=== PATIENT | male | born 1965 | race Caucasian/White ===

== ENCOUNTER 2018-06-26 05:30 | Inpatient (IN) | payer OTHER ==
[2018-06-26] VITALS (63 sets, daily range): BP systolic 85–187; BP diastolic 31–139
[~2018-06-26] VITALS: Ht 172.7 cm; Wt 72.7 kg
--- NOTE | ~2018-06-26 | EEG ---
[facility] [place] [address] ELECTROENCEPHALOGRAM Name: HARMONY BRUCE Room #: 247-P ADM IN M.R.#: [id number] ������������������ Admission: 06/26/18 ������������������ Attend Phys: Ortiz Marquez MD Discharge: ������������������ Date of : 69 Report #: [id number] ����������������������������������������������������������������� [id number] THIS REPORT FOR: //name// CC: GARY physician[facility]PC[facility] DATE OF SERVICE: 07/01/2018 This patient's EEG was done for significant epileptiform activities, which was present the last time. EEG was done by placing the electrode by standard 10-20 system of electrode placement. Both referential and sequential montages were used for recording. It is difficult to tell the background activity because of lot of artifact is present. But, it does look like that on occasions, the EEG background activity goes about 5 Hz and 10-15 microvolt. Sporadic sharper activity is present, but that has significantly improved since last time. Photic stimulation is unremarkable. IMPRESSION: This patient's EEG demonstrates that epileptiform activity has decreased, but sporadic epileptiform activity still appears to be present. Background activity is also trace better since last time, but the EEG still continue to be significantly abnormal consistent with encephalopathy. Finding is nonspecific. Therefore, clinical correlation is recommended. It might be mentioned that technicians noted that the patient is on propofol. If possible, it would be desirable to do the next EEG, if it is done, without propofol because the epileptiform activity appear to have significantly decreased and the patient may be able to get an EEG done without propofol now. Thank you very much for this referral. ���������������������������������������� ���������������������������������������� By: ��������������������������������������������� 1843 [id number] Jesus Alberto Sheth MD /nt
--- NOTE | ~2018-06-26 | EEG ---
[facility] [place] [address] ELECTROENCEPHALOGRAM Name: HARMONY BRUCE Room #: 247-P ADM IN M.R.#: [id number] ������������������ Admission: 06/26/18 ������������������ Attend Phys: Ortiz Marquez MD Discharge: ������������������ Date of : 69 Report #: [id number] ����������������������������������������������������������������� [id number] THIS REPORT FOR: //name// CC: GARY physician/PCP [facility] DATE OF SERVICE: 06/26/2018 This patient's EEG is being done post-cardiac arrest. EEG demonstrates repeated episode of epileptiform activity. IMPRESSION: The patient's study demonstrates repeated episodes of epileptiform activity. The amount of encephalopathy cannot be assessed on the basis of this EEG because the patient is on cooling protocol. EEG should be repeated when the patient is warmed off and preferably without sedation to address that question. ���������������������������������������� ���������������������������������������� By: ��������������������������������������������� 0747 0813 Jesus Alberto Sheth MD /alfred
--- NOTE | ~2018-06-26 | HC ---
[facility] [place] [address] CONSULTATION Name: HARMONY BRUCE Room #: [facility]- ADM IN M.R.#: [id number] Admission: 06/26/18 ������������������ Attend Phys: Ortiz Marquez MD Discharge: ������������������ Date of : 69 Report #: [id number] THIS REPORT FOR: //name// CC: GARY physician/PCP [facility] DATE OF SERVICE: 06/26/2018 HISTORY OF PRESENT ILLNESS: This is a 53-year-old male patient who was seen by me to prognosticate the patient from hypoxic encephalopathy. I talked to the nurses looking after this patient and reviewed the notes. The way I understand, this patient does not see any doctor. He was found to be in VFib and he was shocked and he was admitted. He is unresponsive. He is on sedation. Nurses tell me that sometimes he postures. No family member is available at the moment. He is on cooling protocol. Emergency Room physician did do a CT scan in this patient to rule out any intracranial pathology and that was unremarkable. REVIEW OF SYSTEMS: Review of system is only from the record and it looks like this patient arrested and they have not found any cardiac cause for this patient so far. No other history is available in this patient, neither from the record nor from any family member. I cannot get past medical history and family history in this patient. PHYSICAL EXAMINATION: The patient's examination is also pretty limited. He is unresponsive. Sometimes, it looks like there may be minimum reaction to the pupil, but I am not certain. He really has no other movement is intubated. He is on a vent. He is on hypothermia protocol. GENERAL: He is a very well-developed individual. VITAL SIGNS: His blood pressure is 158/103, pulse is 94 and temperature is 34. LABORATORY DATA: His labs indicate a white count of 15.7. Potassium was 2.9; it has been persistently low. Lactic acid has been high. Troponin has been high. IMPRESSION: This patient appeared to have a cardiac arrest. We will try to prognosticate him. We will try to get an EEG done in this patient as the first test. Then, we will see what further workup is done depending upon the initial EEG. [address] [address] CONSULTATION Name: HARMONY BRUCE Room #: [facility]- ADM IN M.R.#: [id number] Admission: 06/26/18 ������������������ Attend Phys: Ortiz Marquez MD Discharge: ������������������ Date of : 69 Report #: [id number] Thank you very much for this referral and if you have any question, please feel free to contact me. ��������������������������������������������� ���������������������������������������� By: ��������������������������������������������� 1743 1254 Jesus Alberto Sheth MD /nt
--- NOTE | ~2018-06-26 | EEG ---
[facility] [place] [address] ELECTROENCEPHALOGRAM Name: HARMONY BRUCE Room #: 247-P ADM IN M.R.#: [id number] ������������������ Admission: 06/26/18 ������������������ Attend Phys: Ortiz Marquez MD Discharge: ������������������ Date of : 69 Report #: [id number] ����������������������������������������������������������������� [id number] THIS REPORT FOR: //name// CC: [facility] physician/PCP [facility] DATE OF SERVICE: 06/27/2018 This patient's EEG is done for comparison with the last EEG. EEG was done by placing the electrode by standard 10-20 system of electrode placement. Temperature is 36.1. Throughout the record, the patient continued to demonstrate periodic epileptiform activity. IMPRESSION: Severely abnormal EEG where the patient continued to demonstrate very significant epileptiform activity throughout the record. Thank you very much for this referral. ���������������������������������������� ���������������������������������������� By: ��������������������������������������������� 1749 1906 Jesus Alberto Sheth MD /alfred
--- NOTE | 2018-06-26 05:36 | NUR ---
SUCCS-100MG GIVEN AT 0535 PER EMS IV SITE RIGHT FOREARM PRE INTUBATION SECOND IV SITE LEFT FOREARM-#20
[2018-06-26 05:59] LABS: ABSOLUTE NEUTROPHILS 7.4 thou/uL (1.4-8.2); BASOPHILS 0.7 % (0.0-2.0); HEMATOCRIT 47.5 % (42.0-52.0); HEMOGLOBIN 15.8 gm/dL (14.0-18.0); LYMPHOCYTES 47.8 % (24.0-44.0); MCH 35.2 pg (26.0-34.0); MCHC 33.3 g/dL (28.0-37.0); MCV 105.5 fL (80.0-100.0); MONOCYTES 2.8 % (1.0-8.0); PLATELET COUNT 118 thou/uL (150-400); POLYS 47.7 % (36.0-66.0); RBC 4.51 mil/uL (4.50-6.00); RDW 12.9 % (10.5-14.5); WBC 15.5 thou/uL (4.0-11.0)
[2018-06-26 05:59] LABS: HCO3 12.2 mmol/L (22.0-26.0); PCO2 44.7 mmHg (35.0-45.0); PO2 283.4 mmHg (80.0-100.0); pH 7.053 (7.360-7.450); sO2 99.4 % (92.0-98.0)
[2018-06-26 06:09] LABS: CALCIUM 7.8 mg/dL (8.5-10.1); CREATININE 0.9 mg/dL (0.7-1.3); POTASSIUM 3.3 mmol/L (3.5-5.1)
[2018-06-26 06:17] LABS: ALBUMIN 3.2 g/dL (3.4-5.0); TOTAL BILIRUBIN 0.4 mg/dL (<0.1-1.0); TOTAL PROTEIN 6.3 g/dL (6.4-8.2); TROPONIN-I 0.11 ng/mL (<0.06)
[2018-06-26 06:54] LABS: APTT 30.1 Seconds (24.5-32.8); INR 1.3; PROTIME 13.7 Seconds (9.3-11.4)
[2018-06-26 07:07] LABS: BE(vivo) -12.3 mmol/L (-2 to +3); HCO3 17.3 mmol/L (22.0-26.0); PCO2 53.5 mmHg (35.0-45.0); PO2 239.8 mmHg (80.0-100.0); sO2 99.3 % (92.0-98.0)
[2018-06-26 07:08] LABS: pH 7.128 (7.360-7.450)
--- NOTE | 2018-06-26 08:51 | EKG ---
[address] [place] [address] ELECTROCARDIOGRAM REPORT Name: HARMONY BRUCE Room #: 170-6 ADM IN M.R.#: [id number] ������������������ Admission: 06/26/18 ������������������ Attend Phys: Ortiz Marquez MD Discharge: ������������������ Date of : 69 Report #: [id number] ����������������������������������������������������������������� [id number] THIS REPORT FOR: //name// [facility] ED Test Date: 2018-06-26 Test Time: 05:44:46 Pat Name: HARMONY BRUCE Department: Room: 170 Gender: M Advisor Consultant: LINDSAY : 1965 Requested By: Ana Casey Order Number: [id number] MD: Tj Hart Measurements Intervals Sanders Rate: 85 P: 74 SD: 169 QRS: -51 QRSD: 118 T: 63 QT: 446 QTc: 531 Interpretive Statements Sinus rhythm LAD, consider left anterior fascicular block Low voltage, extremity leads No previous ECG available for comparison Electronically Signed On 06-26-2018 8:51:19 CDT by Tj Hart [email or web address] ��������������������������������������������� <ELECTRONICALLY SIGNED> ���������������������������������������� By: Tj Hart MD ��������������������������������������������� 06/26/18 0851 0544 0544 Tj Hart MD /VLADIMIR
[2018-06-26 10:33] LABS: FIBRINOGEN 140.7 mg/dL (210-360)
[2018-06-26 10:55] LABS: D-DIMER 31.01 ug/mLFEU (0.19-0.50)
[2018-06-26 13:06] LABS: BE(vivo) 1.4 mmol/L (-2 to +3); HCO3 25.8 mmol/L (22.0-26.0); PCO2 39.8 mmHg (35.0-45.0); pH 7.429 (7.360-7.450); sO2 99.5 % (92.0-98.0)
[2018-06-26 13:33] LABS: AMP/METHAMP Negative (Negative); BARBITURATES Negative (Negative); BENZODIAZEPINES POSITIVE (Negative); COCAINE Negative (Negative); METHADONE Negative (Negative); OPIATES Negative (Negative); PCP Negative (Negative)
[2018-06-26 14:07] LABS: ABSOLUTE NEUTROPHILS 13.5 thou/uL (1.4-8.2); BASOPHILS 0.1 % (0.0-2.0); HEMATOCRIT 51.1 % (42.0-52.0); HEMOGLOBIN 17.6 gm/dL (14.0-18.0); LYMPHOCYTES 5.2 % (24.0-44.0); MCH 34.9 pg (26.0-34.0); MCHC 34.4 g/dL (28.0-37.0); MCV 101.7 fL (80.0-100.0); MONOCYTES 8.9 % (1.0-8.0); PLATELET COUNT 101 thou/uL (150-400); POLYS 85.8 % (36.0-66.0); RBC 5.02 mil/uL (4.50-6.00); RDW 12.5 % (10.5-14.5); WBC 15.7 thou/uL (4.0-11.0)
[2018-06-26 14:21] LABS: APTT 25.4 Seconds (24.5-32.8); INR 1.2; PROTIME 12.3 Seconds (9.3-11.4)
[2018-06-26 14:25] LABS: CALCIUM 8.6 mg/dL (8.5-10.1); CREATININE 0.5 mg/dL (0.7-1.3); MAGNESIUM 1.3 mg/dL (1.8-2.4); PHOSPHORUS 2.4 mg/dL (2.5-4.9)
[2018-06-26 14:27] LABS: POTASSIUM 2.9 mmol/L (3.5-5.1); TROPONIN-I 1.63 ng/mL (<0.06)
--- NOTE | 2018-06-26 17:09 | NUR ---
Assumed care of patient at 0900. 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 Hypothermia protocol initiated 904, goal temp of 33 celcius reached at 1330. Electrolytes replaced as needed. Significant posturing noted to bilat upper extremities, PRN vecuronium given x2. Propofol drip changed to versed drip. Updated D'An with plan of care, ventilator protocols, plan for re-warming tomorrow, and medications. Will continue to monitor.
[2018-06-26 18:51] LABS: TSH 1.253 uIU/mL (0.358-3.740)
[2018-06-26 19:00] LABS: ABSOLUTE NEUTROPHILS 12.6 thou/uL (1.4-8.2); BASOPHILS 0.2 % (0.0-2.0); HEMATOCRIT 50.3 % (42.0-52.0); HEMOGLOBIN 17.3 gm/dL (14.0-18.0); LYMPHOCYTES 3.7 % (24.0-44.0); MCH 35.1 pg (26.0-34.0); MCHC 34.4 g/dL (28.0-37.0); MCV 102.1 fL (80.0-100.0); MONOCYTES 6.6 % (1.0-8.0); PLATELET COUNT 98 thou/uL (150-400); POLYS 89.5 % (36.0-66.0); RBC 4.93 mil/uL (4.50-6.00); RDW 12.5 % (10.5-14.5); WBC 14.1 thou/uL (4.0-11.0)
[2018-06-26 19:13] LABS: INR 1.3; PROTIME 13.5 Seconds (9.3-11.4)
--- NOTE | 2018-06-26 19:20 | NUR ---
VASCULAR ACCESS CONSULTED FOR A CL FOR MULTIPLE IV MEDS AND VESICANTS. PLEASE SEE INSERTION FOR DETAILS
[2018-06-26 20:09] LABS: CALCIUM 7.9 mg/dL (8.5-10.1); CREATININE 0.6 mg/dL (0.7-1.3); MAGNESIUM 1.8 mg/dL (1.8-2.4); PHOSPHORUS 4.7 mg/dL (2.5-4.9)
[2018-06-26 20:15] LABS: TROPONIN-I 1.03 ng/mL (<0.06)
[2018-06-27] VITALS (99 sets, daily range): BP systolic 55–186; BP diastolic 13–125
[2018-06-27 00:38] LABS: CALCIUM 7.6 mg/dL (8.5-10.1); CREATININE 0.5 mg/dL (0.7-1.3); MAGNESIUM 1.9 mg/dL (1.8-2.4); PHOSPHORUS 3.2 mg/dL (2.5-4.9)
[2018-06-27 00:45] LABS: POTASSIUM 2.7 mmol/L (3.5-5.1); TROPONIN-I 0.73 ng/mL (<0.06)
--- NOTE | 2018-06-27 04:58 | NUR ---
PT REMAINS SEDATED/NONRESPONSIVE ON HYPOTHERMIA PROTOCOL REMAINS IN THE COOLING PHASE UNTIL REWARMING BEGINS TODAY 06/27/18 AT 0900. PT CONTINUES ON VERSED AND INSULIN GTT. PT BP STABLE. PT SR/ST ON MONITOR. TOLERATING VENT SETTINGS OF FIO2 50% SATS 100%. PT NG TO LIS WITH SCANT AMOUNT OF BLOOD TINGED SECRETIONS. PT AM LABS TO BE DRAWN. PT WITH MAINTENANCE IVF. ELECTROLYTE REPLACEMENT PROTOCAL IN PLACE.
[2018-06-27 06:56] LABS: HEMATOCRIT 50.6 % (42.0-52.0); HEMOGLOBIN 17.4 gm/dL (14.0-18.0); MCH 35.3 pg (26.0-34.0); MCHC 34.4 g/dL (28.0-37.0); MCV 102.6 fL (80.0-100.0); PLATELET COUNT 78 thou/uL (150-400); RBC 4.93 mil/uL (4.50-6.00); RDW 12.6 % (10.5-14.5); WBC 10.6 thou/uL (4.0-11.0)
[2018-06-27 07:17] LABS: APTT 31.7 Seconds (24.5-32.8); INR 1.1; PROTIME 11.8 Seconds (9.3-11.4)
[2018-06-27 07:21] LABS: CALCIUM 7.6 mg/dL (8.5-10.1); CREATININE 0.5 mg/dL (0.7-1.3); MAGNESIUM 1.8 mg/dL (1.8-2.4); PHOSPHORUS 2.9 mg/dL (2.5-4.9); TROPONIN-I 0.45 ng/mL (<0.06)
[2018-06-27 07:22] LABS: POTASSIUM 2.9 mmol/L (3.5-5.1)
[2018-06-27 07:25] LABS: BE(vivo) 1.9 mmol/L (-2 to +3); PCO2 43.5 mmHg (35.0-45.0); PO2 169.5 mmHg (80.0-100.0); pH 7.411 (7.360-7.450); sO2 99.2 % (92.0-98.0)
--- NOTE | 2018-06-27 07:56 | HC ---
[facility] [place] [address] CONSULTATION Name: HARMONY BRUCE Room #: [facility]- ADM IN M.R.#: [id number] Admission: 06/26/18 ������������������ Attend Phys: Ortiz Marquez MD Discharge: ������������������ Date of : 69 Report #: [id number] THIS REPORT FOR: //name// CC: GARY physician/PCP [facility] DATE OF SERVICE: 06/26/2018 INDICATION: Arrest. HISTORY OF PRESENT ILLNESS: This is a 53-year-old gentleman with no significant past medical history who presents with out of hospital arrest. According to medical records the patient's heard strange noises from her . She tried to wake him up and he did not respond. She found him unresponsive and called 911. Apparently, a bystander CPR was performed. When EMS arrived, the rhythm was ventricular fibrillation. He was treated with multiple shocks, amiodarone and epinephrine, intubated as well. In the ER, he had a stable rhythm. EKG reveals sinus rhythm without any acute ST segment changes. He does have a history of drinking alcohol on a daily basis, the alcohol level is 187. He is also found to have acidosis with high lactate levels, 9.5. The initial troponin level is 0.11. PAST MEDICAL HISTORY: None. ALLERGIES: None. MEDICATIONS: None. SOCIAL HISTORY: Drinks alcohol on a daily basis, amount unknown. FAMILY HISTORY: Unobtainable. REVIEW OF SYSTEMS: Unobtainable. PHYSICAL EXAMINATION: VITAL SIGNS: Blood pressure is 120/70, heart rate is 98 beats per minute. GENERAL APPEARANCE: A well-developed, well-nourished male, intubated. HEENT: Normocephalic, atraumatic. ET tube in place. NECK: No JVD. LUNGS: Clear to auscultation. CARDIAC: Regular rate and rhythm, S1, S2 positive. ABDOMEN: Soft, nontender. EXTREMITIES: No cyanosis, no edema. ECG reveals sinus rhythm. [facility] [address] [place] [address] CONSULTATION Name: HARMONY BRUCE Room #: [facility] ADM IN M.R.#: [id number] Admission: 06/26/18 ������������������ Attend Phys: Ortiz Marquez MD Discharge: ������������������ Date of : 69 Report #: [id number] Chest x-ray reveals left pneumonitis. LABORATORY VALUES: Troponin 0.11. Alcohol is 187. Lactate 9.5. Sodium is 138, creatinine is 0.9. White count is 15.5, platelet count is 118. ASSESSMENT AND PLAN: 1. Cardiac arrest/ventricular fibrillation, etiology unclear. There is minimal troponin elevation. We will proceed with cardiac catheterization to rule out coronary artery disease. 2. Lactic acidosis, may be related to prolonged hypoxia. We will also need to rule out sepsis. 3. Pneumonitis, rule out aspiration pneumonia. He had a very high alcohol level, may have resulted in aspiration. 4. Alcohol abuse. ��������������������������������������������� <ELECTRONICALLY SIGNED> ���������������������������������������� By: Wai Nicole MD ��������������������������������������������� 06/27/18 0756 0832 [id number] Wai Nicole MD /nt
[2018-06-27 08:42] LABS: ABSOLUTE NEUTROPHILS 8.5 thou/uL (1.4-8.2)
[2018-06-27 08:44] LABS: ANISOCYTOSIS SLIGHT; MACROCYTES SLIGHT
[2018-06-27 08:45] LABS: PLATELET ESTIMATE SLIGHTLY DECREASED
--- NOTE | 2018-06-27 09:09 | CATHLAB ---
[facility] [address] [place] [address] INVASIVE PROCEDURE REPORT Name: HARMONY BRUCE Room #: 247-P ADM IN M.R.#: [id number] ������������� Admission: 06/26/18 ������������� Attend Phys: Ortiz Marquez, Discharge: ��� ������������� ��� Date of : 69 Date of Service: 06/27/18 0909 �� Report #: [id number] �������� ��������������������������������������������[id number] THIS REPORT FOR: //name// APPROVED REPORT Study performed: 06/26/2018 07:16:11 Patient Details The patient is a 53 year-old male Event Personnel Wai Nicole Brand Marketing Specialist, Ga Pimentel RN, Tatiana Fall RT(R)() Dean Jerez Valisa Monitor Procedures Performed Art Access - R femoral artery* Left Heart Cath w/or w/o Coronaries [id number] [facility] [address] Initial Mod Sed Same Phys/QHP Gr5y [id number] Indication Arrhythmia, Out of hospital cardiac arrest, V. fib requiring DC shock. Risk Factors Alcohol history Procedure Narrative The Right Groin^ was infiltrated with 1% Lidocaine subcutaneous anesthesia. A PINNACLE 4FR Sheath #[id number] sheath was inserted into the RFA^. Coronary angiography was performed using coronary diagnostic catheters. The right coronary system was accessed and visualized with a JR4 catheter. The left coronary system was accessed and visualized with a JL4 catheter. The left ventricle was accessed and visualized with a PIGTAIL catheter. Hemostasis was obtained with manual pressure following sheath removal without any complications. The patient tolerated the procedure well and there were no complications associated with the procedure. Intraoperative Conscious Sedation Sedation start time: 753 Case end Time: 807 Fluoro Time: 2.49 minutes Dose: DAP 2330.80 cGycm2 Contrast Type and Amount: Omnipaque 85 ml [facility] [place] [address] [place] [address] INVASIVE PROCEDURE REPORT Name: HARMONY BRUCE Room #: [facility] IN ..#: [id number] ������������� Admission: 06/26/18 ������������� Attend Phys: Ortiz Marquez, Discharge: ��� ������������� ��� Date of : 69 Date of Service: 06/27/18 0909 �� Report #: [id number] �������� ��������������������������������������������[id number] Coronary Angiography The patient's coronary anatomy is co- dominant. Diagnostic Cath Left Main This is a large caliber vessel, with no flow-limiting lesions. LAD The LAD is a moderate size caliber vessel, traversing the anterior wall and wrapping around the apex. There are mild calcifications in the proximal segment but no angiographic evidence for plaquing. There may be minimal luminal irregularities in the midsegment. Diagonal 1 This is a moderate size caliber vessel, with no flow-limiting lesions. Circumflex This is a moderate size caliber vessel, that is codominant. This vessel is patent with no flow-limiting lesions. OM1 This is a moderate size caliber vessel, with no flow-limiting lesions. OM2 This is a moderate size caliber vessel, with no flow-limiting lesions. Right Coronary This is a moderate size caliber vessel, with no flow-limiting lesions. R PDA This is a moderate size caliber vessel, with no flow-limiting lesions. Left Ventriculography The left ventricle is normal in size with normal contractility. The left ventricular ejection fraction is estimated to be 50-55%. Hemodynamics The aortic pressure is 142/105 mmHg with a mean of 120 mmHg. The left ventricular pressure is 180/31 mmHg with a mean of mmHg. The left ventricular end diastolic pressure is 61 mmHg. Conclusion 1. Angiographically normal coronary arteries. There may be minimal luminal irregularities in the mid LAD segment. 2. Codominant system. 3. Normal LV systolic function. ��������������������������������������������� <ELECTRONICALLY SIGNED> ���������������������������������������� By: Wai Nicole MD ��������������������������������������������� 06/27/18908 8 8 Wai Nicole MD /INF
--- NOTE | 2018-06-27 15:39 | NUR ---
CM ASSESSMENT: CASE OPENED FOR DC PLANNING. CLINICAL INFO REVIEWED. PT ADMITTED AFTER OUT OF HOSPITAL ARREST AND IS ON VENT BEING REWARMED TODAY FROM HYPOTHERMIA PROTOCOL. PT HAD BAL OF 187 AND DRUG SCREEN POSITIVE FOR BENZOS AND THC. MET WITH SPOUSE AND OTHER FAMILY IN WAITING ROOM. 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 SPOUSE INDICATES WITHOUT MEDICAL INSURANCE. EXPLAINED ROLE OF HUMANARC AND SPOUSE INDICATES SHE IS OPEN TO WORKING WITH THEM FOR MEDICAID/DISSABILITY SCREENING. SPOUSE INDICATES SHE THINKS THE NE IS PAYING FOR HOSPITAL STAY AND INFORMED HER GENTLY [facility] RE[facility] OUT TO [facility] AND THEY ARE NOT COVERING STAY. EMOTIONAL SUPPORT OFFERRED AND CM AVAILABLE TO ASSIST WITH SUPPORT AND COORDINATION OF ANY DC NEEDS.
--- NOTE | 2018-06-27 18:20 | NUR ---
ASSUMED CARE AT 0700 THIS AM. PATIENT STILL IN COOLING PHASE AND TO START REWARM AT 0905. PATIENT WAS SET TO REWARM AT 0905. PATIENT REMAINED STABLE HOWEVER HAD INTERMITENT SEIZURES/SHIVERS. VEC GIVEN X 3. ONE OF THE TIME VEC WAS GIVEN WAS JUST PRIOR TO EEG SO THEY COULD DECIPHER SHIVER VS SEIZURES. PATIENT HAS TAKEN QUIT A LONG TIME TO REWARM. PATIENT CURRENTLY AT 36.4. GOOD URINE OUTPUT NOTED. CONTINUES ON AN INSULIN DRIP WITH STABLE BLOOD GLUCOSE. REPLACED ELECTROLYTES NEEDED. NO FURTHER CONCERNS AT THIS TIME. WILL CONTINUE TO MONITOR AND CARE PER PLAN OF CARE.
[2018-06-28] VITALS (63 sets, daily range): BP systolic 82–123; BP diastolic 50–78
--- NOTE | 2018-06-28 05:06 | NUR ---
PT REMAINS SEDATED WITH VERSED, FENTANYL, PROPOFOL WITH LEVOPHED GTT FOR PRESSURE SUPPORT. PT APPEARS MORE RELAXED WITH FINE SEIZING NOTED. PT T MAX 100.8 DEGREES, TYLENOL SUPP GIVEN AND TEMP CAME DOWN TO 99.2. PT CONTINUES WITH BANANA BAG AND LR IVF FOR MAINTENANCE. PT CVP MONITORING. PT MAINTAINS ON VENT FIO2 40% SATS 100%. PT NEURO UNRESPONSIVE EXCEPT TO GAG AND COUGH, PUPILS REACTIVE BUT SLUGGISH AND EYE DEVIATE DOWNWARD WITH TICKING MOTION. PT AM LABS TO BE DRAWN AND REVIEWED. PT REMAINED ST 130-140S MAJORITY OF NIGHT AND NOW SR 92 ON MONITOR.
[2018-06-28 05:31] LABS: HEMATOCRIT 40.1 % (42.0-52.0); MCH 35.3 pg (26.0-34.0); MCHC 34.3 g/dL (28.0-37.0); MCV 102.8 fL (80.0-100.0); RBC 3.9 mil/uL (4.50-6.00); RDW 12.8 % (10.5-14.5); WBC 13.5 thou/uL (4.0-11.0)
[2018-06-28 05:57] LABS: HEMOGLOBIN 13.7 gm/dL (14.0-18.0)
[2018-06-28 06:00] LABS: ALBUMIN 2.3 g/dL (3.4-5.0); CALCIUM 6.9 mg/dL (8.5-10.1); CREATININE 0.7 mg/dL (0.7-1.3); POTASSIUM 3.8 mmol/L (3.5-5.1); TOTAL BILIRUBIN 0.6 mg/dL (<0.1-1.0); TOTAL PROTEIN 4.9 g/dL (6.4-8.2)
--- NOTE | 2018-06-28 08:14 | NUR ---
ORDERS FOR EVAL AND TREATED RECEIVED 06/26/18. Pt REMAINS INTUBATED AND ON MULTIPLE MEDICATIONS FOR SEDATION AND PRESSURE SUPPORT TODAY. Pt NOT APPROPRIATE FOR PT EVALUATION AT THIS TIME. PT TO PLACE Pt ON HOLD UNTIL FURTHER ORDERS RECEIVED BEFORE INITIATING THERAPY.
--- NOTE | 2018-06-28 10:14 | NUR ---
FOLLOWING FOR FAMILY SUPPORT AND DC PLANNING. CLINICAL INFO REVIEWED. PT AT CT AT THIS TIME. MET WITH SPOUSE THIS AM. DISCUSSED TIMELINE OF LAY OFF AND POSSIBLE COBRA ELIGIBILITY. ALSO INFORMED HER REQUESTED SERGIO CONNER TO LOOK INTO [facility] TO CLARIFY WHETHER PT ELIGIBLE FOR [facility] COVERAGE OF HOSPITAL STAY. SPOUSE AGREEABLE TO SPEAK WITH SERGIO CONNER AND SERGIO CONNER PRIVIDED WITH SPOUSE CONTACT #.
--- NOTE | 2018-06-28 13:19 | NUR ---
CT HEAD TODAY SHOWS SMALL SUBARCHNOID BLEED. PER DR. SANDERS, FAMILY WANTS TRANSFER TO [facility] AND HE HAS SPOKEN WITH WAREHOUSE FREIGHT HANDLER AT [facility]. PT'S SPOUSE ESPERANZA AND PT'S SISTER FRANCY JOYNER INDICATE FAMILY WANTS OPINION OF NEUROSURGICAL INTERVENTIONALIST DR. ASHLEY, THEY DO NOT WANT TRANSFER AT THIS TIME. SPOKE WITH WAREHOUSE FREIGHT HAND[employer]ER [facility] ([phone]/F:[phone]) AND UPDATED TO FAMILY REQUEST. SHE INDICATES SHE WILL CALL DR. MONROY THE [employer] NEURO INTERVENTIONALIST WITH THIS REQUEST. REQUESTED CLINICAL FAXED TO [facility] AND RADIOLOGY ASKED TO [facility] FOR [facility] TO VIEW. DR. SANDERS AND SALES FORCE DEVELOPER UPDATED.
--- NOTE | 2018-06-28 19:44 | NUR ---
PT REMAINS ON PROPOFOL, VERSED, FENTANYL GTT. CHANGES TO IV KEPPRA AND LACOSAMIDE MADE BY DR. TINAJERO. CT HEAD DONE THIS AM. RESULTS COMMUNICATED TO DR. SANDERS AND LIOR, ORDERS FOR CTA OF HEAD. NEW IV PLACED IN IV AC FOR CTA. LEVO GTT FOR BLOOD PRESSURES TO KEEP MAP >60. EEG DONE THIS AFTERNOON - STILL SHOWS SEIZURE ACITIVTY. FIO2 DOWN TO 30% FROM 40%. PT HAS COUGH AND GAG REFLEX. PUPILS REACTIVE BUT SLUGGISH. AFEBRILE.
[2018-06-29] VITALS (58 sets, daily range): BP systolic 92–145; BP diastolic 55–82
--- NOTE | 2018-06-29 05:44 | NUR ---
PT REMAINS UNCHANGED NEUROLOGICALLY. PT TEMP MAX 100.9 AND RECEIVED TYLENOL NOW TEMP 99.3. PT SR/ST ON MONITOR. CONTINUES ON PROPOFOL, FENTANYL, VERSED AND LEVOPHED GTT. PT WITH MAINTENANCE IVF. PT CVP MONITORING. REMAINS STABLE ON VENT AT 30% FIO2 SATS 100%.
[2018-06-29 08:47] LABS: HEMATOCRIT 34.5 % (42.0-52.0); MCH 35.4 pg (26.0-34.0); MCHC 34.7 g/dL (28.0-37.0); MCV 101.9 fL (80.0-100.0); RBC 3.38 mil/uL (4.50-6.00); RDW 12.5 % (10.5-14.5); WBC 11.6 thou/uL (4.0-11.0)
[2018-06-29 09:00] LABS: ALBUMIN 2.1 g/dL (3.4-5.0); CALCIUM 7.4 mg/dL (8.5-10.1); CREATININE 0.6 mg/dL (0.7-1.3); PHOSPHORUS 2.7 mg/dL (2.5-4.9); POTASSIUM 3.4 mmol/L (3.5-5.1); TOTAL BILIRUBIN 0.7 mg/dL (<0.1-1.0); TOTAL PROTEIN 4.8 g/dL (6.4-8.2)
--- NOTE | 2018-06-29 11:07 | EEG ---
[facility] [place] [address] ELECTROENCEPHALOGRAM Name: HARMONY BRUCE Room #: 247-P ADM IN M.R.#: [id number] ������������������ Admission: 06/26/18 ������������������ Attend Phys: Ortiz Marquez MD Discharge: ������������������ Date of : 69 Report #: [id number] ����������������������������������������������������������������� [id number] THIS REPORT FOR: //name// CC: [facility] physician/PCP Ortiz Spencer [facility] HISTORY: The patient is a 53-year-old male with status epilepticus. An EEG is requested for further evaluation. The patient is on levetiracetam 1000 mg b.i.d. DESCRIPTION: The record consists of spike and wave and occurring singly or in runs lasting 1 up to 4 seconds, followed by attenuation of the background record, which is very short period in comparison to the EEG of yesterday. The patient now has more epileptiform activity, followed by shorter periods of burst suppression. IMPRESSION: This record is consistent with status epilepticus. Medications are being adjusted. ���������������������������������������� <ELECTRONICALLY SIGNED> ���������������������������������������� By: Genesis Salmeron DO ��������������������������������������������� 06/29/18 1107 1222 1343 Genesis Salmeron DO /nt
--- NOTE | 2018-06-29 15:30 | NUR ---
VASCULAR ACCESS ROUNDS- PATIENT IS STILL IN CRITICAL CONDITION WITH MULTIPLE IV'S INFUSING WELL CVP MONITORING- LINE CONTINUES TO BE APPROPRIATE ACCESS
[2018-06-29 17:19] LABS: MAGNESIUM 2.1 mg/dL (1.8-2.4); POTASSIUM 3.8 mmol/L (3.5-5.1)
--- NOTE | 2018-06-29 19:23 | NUR ---
NO CHANGES IN PT STATUS. REMAINS UNRESPONSIVE ON MULTIPLE GTTS. EEG DONE TODAY. CHANGES TO MEDICATIONS BY DR. SCHAFER. PLAN FOR ANOTHER EEG TOMORROW. T-MAX 99.6. TUBE FEEDINGS INITATED AT 20 ML/HR GOAL RATE 65. JEVITY 1.5. AT BEDSIDE THROUGH OUT DAY. ELECTROLYTES REPLACED PER PROTOCOL. WILL CONTINUE TO MONITOR.
[2018-06-30] VITALS (69 sets, daily range): BP systolic 82–136; BP diastolic 49–89
[2018-06-30 05:25] LABS: HEMATOCRIT 35.6 % (42.0-52.0); HEMOGLOBIN 12.4 gm/dL (14.0-18.0); MCH 35.4 pg (26.0-34.0); MCHC 34.7 g/dL (28.0-37.0); RBC 3.49 mil/uL (4.50-6.00); RDW 12.4 % (10.5-14.5); WBC 8.9 thou/uL (4.0-11.0)
[2018-06-30 05:25] LABS: BE(vivo) 5.1 mmol/L (-2 to +3); HCO3 29.5 mmol/L (22.0-26.0); PCO2 42.3 mmHg (35.0-45.0); PO2 76.3 mmHg (80.0-100.0); pH 7.461 (7.360-7.450); sO2 95.9 % (92.0-98.0)
[2018-06-30 05:38] LABS: CALCIUM 7.8 mg/dL (8.5-10.1); CREATININE 0.6 mg/dL (0.7-1.3)
--- NOTE | 2018-06-30 06:00 | NUR ---
REMAINS INTUBATED AND SEDATED WITH VERSED 1 MG FENTANYL 25 MCG AND PROFOFOL AT 25 MCG HAS OCC UPPER BODY SEIZURE ACTIVITY. NONRESPONSIVE. + COUGH AND + GAG NO CORNAL REFLEX PRESENT AT THIS TIME. 1000 CC UO THIS SHIFT. BATHED. REMAINS INB SINBUS RHYTHM TO SINUS TACK. WILL CONT TO MONITOR
--- NOTE | 2018-06-30 12:33 | EEG ---
[facility] [place] [address] ELECTROENCEPHALOGRAM Name: HARMONY BRUCE Room #: 247-P ADM IN M.R.#: [id number] ������������������ Admission: 06/26/18 ������������������ Attend Phys: Ortiz Marquez MD Discharge: ������������������ Date of : 69 Report #: [id number] ����������������������������������������������������������������� [id number] THIS REPORT FOR: //name// CC: [facility] DATE OF SERVICE: 06/29/2018 The patient is a 53-year-old male with an episode of anoxic encephalopathy. Previous EEGs have been consistent with status epilepticus. An EEG is requested for further evaluation. DESCRIPTION: The record consists of bilaterally synchronous sharp waves predominant over the frontocentral head regions. These sharp waves occur as pairs with approximately 2-3 sharp waves per second. Photic stimulation is non-activating. IMPRESSION: This is a significantly abnormal adult record with continuous sharp wave or epileptiform activity predominant over the frontocentral head regions. ���������������������������������������� <ELECTRONICALLY SIGNED> ���������������������������������������� By: Genesis Salmeron DO ��������������������������������������������� 06/30/18 1233 1452 1840 Genesis Salmeron DO /nt
--- NOTE | 2018-06-30 12:33 | EEG ---
[facility] [place] [address] ELECTROENCEPHALOGRAM Name: HARMONY BRUCE Room #: 247-P ADM IN M.R.#: [id number] ������������������ Admission: 06/26/18 ������������������ Attend Phys: Ortiz Marquez MD Discharge: ������������������ Date of : 69 Report #: [id number] ����������������������������������������������������������������� [id number] THIS REPORT FOR: //name// CC: [facility] physician/PCP Ortiz [facility] HISTORY: The patient is a 53-year-old male who has been in status epilepticus. The patient is on Versed, propofol, levetiracetam, lacosamide and Depakote. DESCRIPTION: The record consists of bilaterally synchronous bursts of polyspike and wave activity with periods of attenuation lasting up to 1 second. During this recording, there is one clearly defined seizure lasting approximately 15 seconds. IMPRESSION: This is a significantly abnormal record with burst suppression and one electrographic seizure lasting approximately 15 seconds. 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 ���������������������������������������� <ELECTRONICALLY SIGNED> ���������������������������������������� By: Genesis Salmeron DO ��������������������������������������������� 06/30/18 1233 1216 1230 Genesis Salmeron DO /nt
--- NOTE | 2018-06-30 18:53 | NUR ---
TITRATED OFF LEVO. MAP >60. REMAINS ON PROPOFOL, VERSED, AND FENTANYL GTT. EEG DONE TODAY. DR. SCHAFER SPOKE WITH ABOUT RESULTS. PLAN TO MAX ANTI-SEIZURE MEDS AND REPEAT EEG IN AM. CHANGED CODE STATUS TO DNR. HYPOGLYCEMIC THIS EVEN. 1/2 AMP GIVEN. REPEAT BLOOD SUGAR WITH IN NORMAL RANGE.
[2018-07-01] VITALS (38 sets, daily range): BP systolic 82–139; BP diastolic 46–87
--- NOTE | 2018-07-01 06:00 | NUR ---
REMAINS INTUBATED AND SEDATED. CONT TO HAVE OCC SEIZURES OF UPPER TORSSO VERSED GTT AT 8 MG. PROPOFOL GTT FENTANYL 25 MCG/HR. NONRESPONSIVE FOLLOWS NO COMMANDS. + GAG AND + COUGH NO CORNEAL REFLEX. BATHED PT REMAINS A DNR. WILL REPEAT AN EEG THIS AM AND POSSIBLY WITH DRAW CARE. PTS FULLY AWARE OF THE SITUATION. WILL CONBT TO MONITOR
--- NOTE | 2018-07-01 19:49 | NUR ---
PATIENT NOT RESPONSIVE, INTERMITTENT SEIZURE LIKE ACTIVITY. SINUS TACHYCARDIA ON LOCKSTITCH SHOULDER JOINER. ON VENTILATOR 30% FIO2. NG TUBE PRESENT, PATIENT TOLERATING TUBE FEEDING. GARZA PATENT AND DRAINING. FAMILY UPDATED ON THE PLAN OF CARE. SPOKE WITH DR. RUIZ AND ALEA ABOUT PLAN. NO SIGNS OF ACUTE DISTRESS NOTED AT THIS TIME. WILL CONTINUE TO MONITOR.
[2018-07-02] VITALS (27 sets, daily range): BP systolic 93–123; BP diastolic 51–77
[2018-07-02 00:17] LABS: BE(vivo) 3.8 mmol/L (-2 to +3); HCO3 27.7 mmol/L (22.0-26.0); PCO2 39.4 mmHg (35.0-45.0); PO2 87.6 mmHg (80.0-100.0); pH 7.465 (7.360-7.450); sO2 97.1 % (92.0-98.0)
[2018-07-02 00:38] LABS: HEMATOCRIT 31.7 % (42.0-52.0); MCH 35.8 pg (26.0-34.0); MCHC 34.7 g/dL (28.0-37.0); MCV 103.2 fL (80.0-100.0); PLATELET COUNT 110 thou/uL (150-400); RBC 3.07 mil/uL (4.50-6.00); RDW 12.6 % (10.5-14.5); WBC 6.4 thou/uL (4.0-11.0)
[2018-07-02 00:47] LABS: CREATININE 0.5 mg/dL (0.7-1.3); POTASSIUM 3.6 mmol/L (3.5-5.1)
[2018-07-02 00:52] LABS: APTT 26.4 Seconds (24.5-32.8)
[2018-07-02 00:53] LABS: ALBUMIN 1.8 g/dL (3.4-5.0); DIRECT BILIRUBIN 0.2 mg/dL (<0.1-0.3); PHOSPHORUS 4.3 mg/dL (2.5-4.9); TOTAL BILIRUBIN 0.4 mg/dL (<0.1-1.0); TOTAL PROTEIN 4.9 g/dL (6.4-8.2)
[2018-07-02 01:10] LABS: URINE BILIRUBIN NEGATIVE (Negative); URINE BLOOD NEGATIVE (Negative); URINE CLARITY CLEAR; URINE COLOR YELLOW; URINE GLUCOSE-RANDOM* NEGATIVE (Negative); URINE KETONES TRACE (Negative); URINE LEUKOCYTES NEGATIVE (Negative); URINE NITRITE NEGATIVE (Negative); URINE PROTEIN (DIPSTICK) NEGATIVE (Negative); URINE SPECIFIC GRAVITY 1.015 (1.005-1.035)
[2018-07-02 01:20] LABS: ABSOLUTE NEUTROPHILS 4.3 thou/uL (1.4-8.2); MACROCYTES 1+
--- NOTE | 2018-07-02 04:53 | NUR ---
PT REMAINS ON VENT 30% FIO2 SATS 97% PT REMAINS ON SEDATION VERSED, FENTANYL, PROPOFOL GTT. PT ST ON MONITOR. PT HAS TUBE FEED RUNNING AND TOLERATING. CONTINUES LOW GRADE TEMP 99.2. AM LABS TO BE DRAWN AND REVIEWED.
[2018-07-02 06:55] LABS: HEMATOCRIT 31.3 % (42.0-52.0); HEMOGLOBIN 10.8 gm/dL (14.0-18.0); MCH 35.5 pg (26.0-34.0); MCHC 34.6 g/dL (28.0-37.0); MCV 102.6 fL (80.0-100.0); PLATELET COUNT 111 thou/uL (150-400); RBC 3.05 mil/uL (4.50-6.00); RDW 12.5 % (10.5-14.5); WBC 6.4 thou/uL (4.0-11.0)
[2018-07-02 07:07] LABS: APTT 26.8 Seconds (24.5-32.8); FIBRINOGEN 419.7 mg/dL (210-360); PROTIME 10.1 Seconds (9.3-11.4)
[2018-07-02 07:08] LABS: ALBUMIN 1.8 g/dL (3.4-5.0); DIRECT BILIRUBIN 0.2 mg/dL (<0.1-0.3); MAGNESIUM 1.9 mg/dL (1.8-2.4); TOTAL BILIRUBIN 0.4 mg/dL (<0.1-1.0); TOTAL PROTEIN 4.8 g/dL (6.4-8.2)
[2018-07-02 07:15] LABS: ABSOLUTE NEUTROPHILS 4.8 thou/uL (1.4-8.2); LARGE PLATELETS OCCASIONAL; PLATELET ESTIMATE SLIGHTLY DECREASED
[2018-07-02 07:16] LABS: ANISOCYTOSIS SLIGHT; MACROCYTES 1+
[2018-07-02 07:21] LABS: BE(vivo) 4.2 mmol/L (-2 to +3); HCO3 28.4 mmol/L (22.0-26.0); pH 7.459 (7.360-7.450); sO2 92.6 % (92.0-98.0)
[2018-07-02 12:06] LABS: BE(vivo) 4.1 mmol/L (-2 to +3); HCO3 27.8 mmol/L (22.0-26.0); PCO2 38.6 mmHg (35.0-45.0); pH 7.476 (7.360-7.450); sO2 90.6 % (92.0-98.0)
[2018-07-02 12:08] LABS: PO2 54.8 mmHg (80.0-100.0)
[2018-07-02 12:16] LABS: HEMATOCRIT 31.3 % (42.0-52.0); HEMOGLOBIN 10.9 gm/dL (14.0-18.0); MCH 35.9 pg (26.0-34.0); MCHC 34.7 g/dL (28.0-37.0); MCV 103.5 fL (80.0-100.0); PLATELET COUNT 121 thou/uL (150-400); RBC 3.03 mil/uL (4.50-6.00); RDW 12.6 % (10.5-14.5)
[2018-07-02 12:26] LABS: APTT 26.3 Seconds (24.5-32.8); PROTIME 10.1 Seconds (9.3-11.4)
[2018-07-02 12:31] LABS: FIBRINOGEN 449.3 mg/dL (210-360)
[2018-07-02 12:39] LABS: ALBUMIN 1.8 g/dL (3.4-5.0); CALCIUM 8.2 mg/dL (8.5-10.1); CREATININE 0.6 mg/dL (0.7-1.3); DIRECT BILIRUBIN 0.1 mg/dL (<0.1-0.3); PHOSPHORUS 4.1 mg/dL (2.5-4.9); POTASSIUM 3.6 mmol/L (3.5-5.1); TOTAL BILIRUBIN 0.3 mg/dL (<0.1-1.0); TOTAL PROTEIN 4.9 g/dL (6.4-8.2)
[2018-07-02 12:40] LABS: ABSOLUTE NEUTROPHILS 4.6 thou/uL (1.4-8.2); ANISOCYTOSIS SLIGHT; ATYPICAL LYMPHS 4 %; MACROCYTES 1+; PLATELET ESTIMATE SLIGHTLY DECREASED
[2018-07-02 14:55] LABS: URINE BILIRUBIN NEGATIVE (Negative); URINE BLOOD NEGATIVE (Negative); URINE CLARITY CLEAR; URINE COLOR YELLOW; URINE GLUCOSE-RANDOM* NEGATIVE (Negative); URINE KETONES TRACE (Negative); URINE LEUKOCYTES NEGATIVE (Negative); URINE NITRITE NEGATIVE (Negative); URINE PROTEIN (DIPSTICK) NEGATIVE (Negative); URINE SPECIFIC GRAVITY 1.015 (1.005-1.035); URINE UROBILINOGEN >= 8.0 E.U./dl (0.2-1.0)
[2018-07-02 17:55] LABS: HEMOGLOBIN 11.1 gm/dL (14.0-18.0); MCH 35.4 pg (26.0-34.0); MCHC 34.6 g/dL (28.0-37.0); MCV 102.3 fL (80.0-100.0); PLATELET COUNT 135 thou/uL (150-400); RBC 3.13 mil/uL (4.50-6.00); RDW 12.7 % (10.5-14.5); WBC 7.3 thou/uL (4.0-11.0)
[2018-07-02 17:57] LABS: BE(vivo) 6.2 mmol/L (-2 to +3); HCO3 29.9 mmol/L (22.0-26.0); PO2 91.2 mmHg (80.0-100.0); pH 7.492 (7.360-7.450); sO2 97.5 % (92.0-98.0)
[2018-07-02 18:09] LABS: APTT 27.7 Seconds (24.5-32.8); FIBRINOGEN 502.4 mg/dL (210-360)
[2018-07-02 18:17] LABS: ALBUMIN 1.9 g/dL (3.4-5.0); CALCIUM 8.1 mg/dL (8.5-10.1); CREATININE 0.6 mg/dL (0.7-1.3); DIRECT BILIRUBIN 0.1 mg/dL (<0.1-0.3); PHOSPHORUS 4.2 mg/dL (2.5-4.9); POTASSIUM 3.8 mmol/L (3.5-5.1); TOTAL BILIRUBIN 0.3 mg/dL (<0.1-1.0); TOTAL PROTEIN 5.2 g/dL (6.4-8.2)
--- NOTE | 2018-07-02 20:12 | NUR ---
PATIENT NOT RESPONSIVE, ON 30% FIO2. NG TUBE IN PLACE, GARZA INTACT AND DRAINING. PLAN OF CARE DISCUSSED WITH FAMILY AND , DR. COSBY, DR. RUIZ, DR. DE OLIVEIRA NOTIFIED. PATIENT PLACED ON PORTABLE MONITOR, REPORT GIVEN TO ONCOMING NIGHT NURSE. FAMILY, NIGHT NURSE, DR. SANDERS, RESPIRATORY, AND [facility] STAFF PRESENT AT THE BEDSIDE. NO SIGNS OF ACUTE DISTRESS NOTED AT THIS TIME. PATIENT TRANSFERRED TO THE PACU.
--- NOTE | 2018-07-02 22:37 | NUR ---
ARRIVED ON UNIT. AWAITING OR TEAM READY ALONG WITH [facility] AT PT BEDSIDE TO TAKE PT TO PACU TO EXTUBATE AND INITIATE COMFORT MEDS. PT OFF UNIT 2014 WITH [facility] TEAM, 2 RN WALLACE ZAYAS AND MYSELF, AMRIT RT AND PT ACCOMPANIED BY TWO FAMILY MEMBERS. TO PACU, PT EXTUBATED AT 2019. COMFORT MEDS GIVEN, SEE EMAR UNDER THE DIRECTION OF DR. SANDERS AT BEDSIDE. PHARMACY HAD SENT A TOTAL OF 60,000 UNITS OF HEPARIN TO BE AVAILABLE FOR PT BUT ONLY USED 30,000 UNITS OF HEPARIN UNDER THE DIRECTION OF [facility] SEE EMAR. CALL PLACED TO PHARMACY AND PHARMACIST SAID JUST DISPOSE IN CORRECT BIN OF THE UNUSED PORTION OF HEPARIN WHICH WAS DONE. PT TIME OF 2033. THEN UNDER DIRECTION OF [facility] WITH PT TO OR FOR HARVESTING.
== END 2018-07-02 20:34 | DRG 207 ==
LOC: ER 05:30 → EROBS 06:22 → ICU 06:22
PROVIDERS: Internal Medicine; Nurse Practitioner Acute Care; Nurse Practitioner Family; Pediatrics; Psychiatry & Neurology Neuromuscular Medicine; Student in an Organized Health Care Education/Training Program; ADMIT Internal Medicine
DX: J96.01 Acute respiratory failure with hypoxia (principal); J18.9 Pneumonia, unspecified organism; I60.9 Nontraumatic subarachnoid hemorrhage, unspecified; E87.2 Acidosis; R57.9 Shock, unspecified; G93.1 Anoxic brain damage, not elsewhere classified; G40.901 Epilepsy, unspecified, not intractable, with status epilepticus; Z66 Do not resuscitate; I46.9 Cardiac arrest, cause unspecified; I49.01 Ventricular fibrillation; E87.6 Hypokalemia; E83.39 Other disorders of phosphorus metabolism; F10.129 Alcohol abuse with intoxication, unspecified; F12.10 Cannabis abuse, uncomplicated; D69.6 Thrombocytopenia, unspecified; F17.210 Nicotine dependence, cigarettes, uncomplicated; Z87.81 Personal history of (healed) traumatic fracture; Z79.899 Other long term (current) drug therapy
CPT/HCPCS: 10078; 50101; 50554; 57103